=== PATIENT | female | born 1955 | race Caucasian/White ===

== ENCOUNTER → 2023-11-20 13:32 | Outpatient (REF) | payer MEDICARE, SELFPAY | LOC: WDC 13:32 | PROVIDERS: ATTENDING PHYSICIAN Physician Assistant Medical | DX: Z12.31 Encounter for screening mammogram for malignant neoplasm of breast (principal) | CPT/HCPCS: 77063; 77067 ==

== ENCOUNTER → 2023-12-30 14:26 | Outpatient (REF) | payer MEDICARE, SELFPAY | LOC: RAD 14:26 | PROVIDERS: ATTENDING PHYSICIAN Physician Assistant Medical | DX: S76.212D Strain of adductor muscle, fascia and tendon of left thigh, subsequent encounter (principal); M54.16 Radiculopathy, lumbar region; M25.562 Pain in left knee | CPT/HCPCS: 72110; 73502 ==

== ENCOUNTER → 2024-01-09 13:47 | Outpatient (REF) | payer MEDICARE, SELFPAY | LOC: PAVMRI 13:47 | PROVIDERS: ATTENDING PHYSICIAN Physician Assistant Medical | DX: M54.16 Radiculopathy, lumbar region (principal); M25.562 Pain in left knee | CPT/HCPCS: 72148 ==

== ENCOUNTER → 2024-07-13 08:47 | Outpatient (REF) | payer MEDICARE, SELFPAY | LOC: RAD 08:47 | PROVIDERS: ATTENDING PHYSICIAN Student in an Organized Health Care Education/Training Program | DX: J18.9 Pneumonia, unspecified organism (principal) | CPT/HCPCS: 71046 ==

== ENCOUNTER → 2024-12-30 13:29 | Outpatient (REF) | payer MEDICARE, SELFPAY | LOC: WDC 13:29 | PROVIDERS: ATTENDING PHYSICIAN Physician Assistant Medical | DX: Z12.31 Encounter for screening mammogram for malignant neoplasm of breast (principal) | CPT/HCPCS: 77063; 77067 ==

== ENCOUNTER → 2025-07-12 13:55 | Outpatient (REF) | payer MEDICARE, SELFPAY | LOC: WDC 13:55 | PROVIDERS: ATTENDING PHYSICIAN Physician Assistant Medical | DX: R92.333 Mammographic heterogeneous density, bilateral breasts (principal) | CPT/HCPCS: 76641 ==